=== PATIENT | female | born 1955 | race Caucasian/White ===

== ENCOUNTER 2016-05-08 08:39 | Observation (INO) | payer OTHER ==
[2016-05-05 15:59] VITALS: BMI 15.3
[~2016-05-08] VITALS: Ht 167.6 cm; Wt 42.5 kg
[2016-05-08] VITALS (30 sets, daily range): BP systolic 74–109; BP diastolic 42–58; PULSE 58–89; RESP 12–22; Ht 167.6 cm; Wt 42.5 kg
[~2016-05-08 08:39] MED LIST: HETASTARCH 6% NACL 500 ML BAG ONE
--- NOTE | 2016-05-08 11:39 | RADRPT ---
PROCEDURE: XR Chest AP portable CLINICAL INDICATION: Preop TECHNIQUE: An AP portable radiograph of the chest was submitted. COMPARISON: None. FINDINGS: Support Hardware: A right-sided Port-A-Cath is evident with the tip projecting to the superior vena cava. Cardiovascular: The cardiovascular silhouette appears unremarkable. Lung Ray: The lung ray are hyperexpanded. There is minimal pleural parenchymal scarring at th e apices. Pleural Spaces: No pneumothorax or pleural effusion is identified. Osseous Structures: The osseous structures appear intact. Soft Tissues: The soft tissues appear unremarkable. IMPRESSION: 1. Right-sided Port-A-Cath in place 2. Pulmonary hyperexpansion with minimal pleural parenchymal scarring at the pulmonary apices. Physician Jocelyn Date Time Electronically viewed and signed by Physician Jocelyn on 05/08/2016 11:39 /
[2016-05-08 11:43] LABS: POTASSIUM 5.4 mmol/L (3.5-5.1)
[2016-05-08 11:54] LABS: CALCIUM 9.5 mg/dl (8.4-10.2); CREATININE 0.72 mg/dl (0.44-1.00)
[2016-05-08 11:56] LABS: INR 0.96; PROTIME 12.8 Sec (12.2-14.2)
[2016-05-08] MEDS ORDERED: HYDROCODONE/APAP (7.5/325) TAB PO PRN (12:00)
[2016-05-08 12:09] LABS: BASOPHILS % 0.5 % (0.0-2.0); EOSINOPHILS # 0.1 10^3/ul (0.0-0.5); EOSINOPHILS % 1.9 % (0.0-7.0); HEMATOCRIT 32.9 % (37.0-47.0); HEMOGLOBIN 11.2 g/dl (12.0-16.0); LYMPHOCYTES # 1.2 10^3/ul (0.8-2.9); LYMPHOCYTES % 32.6 % (15.0-51.0); MEAN CORPUSCULAR HEMOGLOBIN 35.7 pg (29.0-33.0); MEAN CORPUSCULAR HGB CONC 34.1 g/dl (32.0-37.0); MEAN CORPUSCULAR VOLUME 104.5 fl (82.0-101.0); MEAN PLATELET VOLUME 8.3 fl (7.4-10.4); MONOCYTE # 0.3 10^3/ul (0.3-0.9); MONOCYTES % 7.2 % (0.0-11.0); NEUTROPHIL # 2.1 10^3/ul (1.6-7.5); NEUTROPHILS % 57.8 % (39.0-77.0); PLATELET COUNT 157 10^3/UL (140-440); RED BLOOD COUNT 3.14 10^6/ul (4.20-5.40); RED CELL DISTRIBUTION WIDTH 14.2 % (11.5-14.5); UNCORRECTED WBC 3.7 10^3/ul (4.8-10.8); WHITE BLOOD COUNT 3.7 10^3/ul (4.8-10.8)
[2016-05-08 12:14] LABS: CONDITION 1; LH ANALYZER COMMENTS 1
[2016-05-08] MEDS ORDERED: SOD CHLORIDE 0.9% 1,000 ML IV SCH (12:30)
[2016-05-08] MEDS ORDERED: CEFAZOLIN 2 GM/50 ML (PMX) 50 ML IVPB ONE (12:30)
[2016-05-08 12:31] LABS: PARTIAL THROMBOPLASTIN TIME 24.1 Sec (25.0-35.0)
[2016-05-08] MEDS ORDERED: FENTAnyl 50 MCG/ML VIAL ONE (12:33)
[2016-05-08] MEDS ORDERED: MIDAZOLAM 1 MG/ML 2 ML INJ ONE (12:33)
[2016-05-08] MEDS ORDERED: PROPOFOL 20 ML ONE (12:40)
[2016-05-08] MEDS ORDERED: PHENYLephrine (100 MCG/ML) 5ML SYG ONE ×3 (12:40→13:21)
[2016-05-08] MEDS ORDERED: METOCLOPRAMIDE 10 MG INJ ONE (13:21)
[2016-05-08] MEDS ORDERED: ONDANSETRON 4 MG INJ ONE (13:21)
[2016-05-08] MEDS ORDERED: DEXAMETHASONE 4 MG/ML 1 ML INJ ONE (13:21)
[2016-05-08] MEDS ORDERED: KETOROLAC 30 MG INJ ONE (13:21)
[2016-05-08] MEDS ORDERED: EPHEDrine SULFATE 50 MG/5 ML SYG IV PRN (13:30)
[2016-05-08] MEDS ORDERED: ONDANSETRON 4 MG INJ IV PRN (13:30)
[2016-05-08] MEDS ORDERED: DIPHENHYDRAMINE 50 MG INJ IV PRN (13:30)
[2016-05-08] MEDS ORDERED: FENTAnyl 50 MCG/ML VIAL IV PRN ×2 (13:30)
[2016-05-08] MEDS ORDERED: morphine (1 MG/ML) 10ML SYRINGE IV PRN ×2 (13:30)
[2016-05-08] MEDS ORDERED: ALBUMIN HUMAN 5% 250 ML IV PRN (13:30)
[2016-05-08] MEDS ORDERED: HYDROmorphONE (0.2 MG/ML) 10ML SYG IV PRN ×2 (13:30)
[2016-05-08] MEDS ORDERED: CEFAZOLIN 1 GM INJ ONE (13:41)
--- NOTE | 2016-05-08 14:14 | OPR ---
DATE OF OPERATION: 05/08/2016 PREOPERATIVE DIAGNOSIS: Locally advanced left breast cancer. POSTOPERATIVE DIAGNOSIS: Locally advanced left breast cancer. OPERATION PERFORMED: Needle-directed left partial mastectomy and axillary dissection. ANESTHESIA: General. ANESTHESIOLOGIST: Dr. Velasco. SURGEON: Ronny Merritt MD SPINNING LATHE OPERATOR AUTOMATIC: Rodolfo Vela MD INDICATIONS FOR PROCEDURE: The patient is a 60-year-old female who presented with a large, approxim ately 4 cm left breast cancer. She was found to be to HER2 positive. She underwent neoadjuvant dwight motherapy with good response. A post-treatment mammogram revealed that the tumor had shrunken signi ficantly and she was deemed a candidate for needle-directed partial mastectomy and axillary dissecti on. She consented and was scheduled for surgery. DESCRIPTION OF PROCEDURE: On the morning of surgery, the patient presented to [facility] where she underwent localization of the lesion performed by attending radiol ogist, Dr. Ana Song. Subsequently, she was brought to the operating theater, placed under ge neral anesthesia. The left breast and axillary region were prepped and draped in usual sterile fash ion. Attention was directed to the region of the localization wire which was in the upper outer eunice drant. A curvilinear incision was made in this region. Subcutaneous tissue was dissected with caut juno. Skin edges were then elevated with skin hooks. Wide circumferential dissection of the tissue associated with the wire took place, taking care to ensure adequate margin. Specimen was elevated, transected, oriented, and sent for radiographic confirmation of capture. Capture was confirmed. Th e specimen was sent for permanent pathologic analysis. The wound was irrigated. Upon inspection, Sowmya Merritt, found additional firm tissue inferiorly. This tissue was also resected, oriented and sent separately for pathologic analysis. The wound was then irrigated. Minimal bleeding was controlled with cautery. The skin was reapproximated with 4-0 Vicryl suture in subcuticular fashion. Attention was then directed towards the axilla. A 4 cm incision was made in the axillary hairline. Subcutaneous tissue was dissected with cautery down through the clavipectoral fascia. With blunt d issection along the chest wall, the long thoracic nerve was identified and kept out of harm's way. More superiorly, the axillary vein and thoracodorsal neurovascular bundle were identified and kept o ut of harm's way. Node bearing tissue between the long thoracic nerve and thoracodorsal nerve was t hen meticulously resected using the LigaSure device. Specimen was sent for permanent pathologic danni lysis. The wound was irrigated. Minimal bleeding was controlled with cautery. A #7 Chinese Rc -Maya drain was then brought through the left mid axillary line, cut to size and laid within the ax illa. It was secured in place with 2-0 nylon suture in standard fashion. The skin was then reappro ximated with a 4-0 Vicryl suture in subcuticular fashion. Dermabond was applied to both wounds The patient tolerated the procedure well. Estimated blood loss was 30 mL. There were no complications and the patient was transported in stable condition to the recovery room. Dictated By: RONNY MULLEN/NASIR Conf#: [id number] DID#: [id number]
[2016-05-08] MEDS ORDERED: NALOXONE (0.4 MG/ML) INJ IV ONE (17:30)
[2016-05-08] MEDS ORDERED: LACTATED RINGER'S 1,000 ML IV SCH (18:00)
[2016-05-08] MEDS ORDERED: IBUPROFEN 400 MG TAB PO SCH (18:00)
--- NOTE | 2016-05-10 09:24 | RADRPT ---
Vent Rate: 67 bpm RR Interval: 0 msec WA Interval: 152 msec QRS Duration: 80 msec QT Interval: 432 msec QTC Interval: 456 msec P-R-T [place]: 75 - 19 - 79 degrees Normal sinus rhythm Normal ECG Electronically Signed By: Xavi Burton [id number]
== END 2016-05-08 19:38 | disposition home or self-care (01) ==
LOC: SDS 08:39 → EDSTATUS 14:50 → MS1 17:59 → SDS 17:59
PROVIDERS: ADMIT Surgery Surgical Oncology; ATTEND Surgery Surgical Oncology
DX: D05.12 Intraductal carcinoma in situ of left breast (principal)
CPT/HCPCS: 19301; 38500; 71010; 80048; 85025; 85610; 85730; 88307; 93005; J0690; J1100; J1885; J2250; J2310; J2370; J2405; J2765; J3010; Z7500; Z7512; Z7610; G0378

== ENCOUNTER 2016-06-09 08:54 | Day surgery (SDC) | payer OTHER ==
[2016-06-09] VITALS (12 sets, daily range): BP systolic 93–116; BP diastolic 50–72; PULSE 68–86; RESP 18–27; Ht 165.1 cm; Wt 42.0 kg
[~2016-06-09] VITALS: Ht 165.1 cm; Wt 42.0 kg
[2016-06-09] MEDS ORDERED: CEFAZOLIN 1 GM/50 ML (PMX) 50 ML IVPB ONE (09:00)
[2016-06-09] MEDS ORDERED: SOD CHLORIDE 0.9% 1,000 ML IV SCH (09:00)
--- NOTE | 2016-06-09 10:02 | RADRPT ---
PROCEDURE: XR Chest. CLINICAL INDICATION: Preoperative chest TECHNIQUE: Chest AP portable. COMPARISON: 05/08/2016 FINDINGS: Right internal jugular Port-A-Cath. The mediastinal structures are unremarkable. There is calcification of the thoracic aorta (consiste nt with atherosclerosis). The heart is normal in size and configuration. The pulmonary vascularity i s normal. There is marked hyperinflation. No consolidation is identified. The pleural spaces are un remarkable. There are senescent changes of the axial skeleton. There are kaushal shadows projecting o sakina the lower lung ray IMPRESSION: Calcification of the thoracic aorta (consistent with atherosclerosis) Marked hyperinflation No active intrathoracic disease RPTAT: HGDB .Mt Shah MD, Date Time Electronically viewed and signed by .Mt Shah MD, on 06/09/2016 10:02 .B/
[2016-06-09] MEDS ORDERED: BUTA1CAP39 PO (10:39)
[2016-06-09] MEDS ORDERED: WELLBUTRIN (10:39)
[2016-06-09] MEDS ORDERED: HYDR-902 PO (10:39)
[2016-06-09] MEDS ORDERED: FENTAnyl 50 MCG/ML VIAL ONE (10:49)
[2016-06-09] MEDS ORDERED: MEPERIDINE 25 MG INJ IV PRN (11:30)
[2016-06-09] MEDS ORDERED: FENTAnyl 50 MCG/ML VIAL IV PRN (11:30)
[2016-06-09] MEDS ORDERED: OXYCODONE/ACETAMINOPHEN (5/325) TAB PO PRN (11:30)
[2016-06-09] MEDS ORDERED: morphine (1 MG/ML) 10ML SYRINGE IV PRN ×3 (11:30)
[2016-06-09] MEDS ORDERED: HYDROCODONE/APAP (7.5/325) TAB PO PRN (12:00)
--- NOTE | 2016-06-09 12:12 | OPR ---
DATE OF OPERATION: 06/09/2016 PREOPERATIVE DIAGNOSIS: Left breast cancer, need for reexcision partial mastectomy. POSTOPERATIVE DIAGNOSIS: Left breast cancer, need for reexcision partial mastectomy. OPERATION PERFORMED: Left reexcision partial mastectomy. ANESTHESIA: General. ANESTHESIOLOGIST: Dr. Doll SURGEON: Ronny Merritt MD ASSISTANTS: Dr. Vela and Dr. Matthews. INDICATIONS FOR PROCEDURE: The patient is a 60-year-old female, recently treated for breast cancer. She had inadequate margins and required reexcision. She consented and was scheduled for surgery. DESCRIPTION OF PROCEDURE: The patient was brought to the operating theater and placed under general anesthesia. The left breast was prepped and draped in the usual sterile fashion. A planned ellipt ical incision around the previous surgical incisional scar was made with a 15 blade scalpel. The birch bcutaneous tissue was dissected with cautery. The skin edges were elevated with skin hooks. Wide c ircumferential dissection of the entire previous biopsy cavity took place. Specimen was transected, oriented, and sent for permanent pathologic analysis. The wound was irrigated. Minimal bleeding w as controlled with cautery. Dr. Merritt made the decision to lay a small quarter-inch [place] drain i nto the wound cavity based on the size of the cavity and secured it in place with 2-0 nylon suture i n a standard fashion. The skin was then reapproximated with 4-0 Vicryl sutures in deep dermal interr upted fashion, followed by final skin approximation with 5-0 PDS sutures in subcuticular fashion. B enzoin and Steri-Strips were then applied. The patient tolerated the procedure well. Estimated blo od loss was 20 mL. COMPLICATIONS: None. DISPOSITION: The patient was transported in stable condition to the recovery room. Dictated By: RONNY MULLEN/NASIR Conf#: [id number] DID#: [id number]
[2016-06-09] MEDS ORDERED: CEFAZOLIN 1 GM INJ ONE (12:54)
[2016-06-09] MEDS ORDERED: ROCURONIUM 50 MG INJ ONE (12:54)
[2016-06-09] MEDS ORDERED: NEOSTIGMINE 3 MG/3 ML SYRINGE ONE (12:54)
[2016-06-09] MEDS ORDERED: PROPOFOL 40 ML ONE (12:54)
[2016-06-09] MEDS ORDERED: LIDOCAINE 2% (SDV) 5 ML INJ ONE (12:54)
[2016-06-09] MEDS ORDERED: GLYCOPYRROLATE 0.4 MG INJ ONE (12:54)
[2016-06-09] MEDS ORDERED: SUCCINYLCHOLINE CHLORIDE 100 MG/5 ML SYG IV ONE (12:54)
--- NOTE | 2016-06-09 13:45 | RADRPT ---
Vent Rate: 76 bpm RR Interval: 0 msec DC Interval: 148 msec QRS Duration: 92 msec QT Interval: 412 msec QTC Interval: 463 msec P-R-T [place]: 77 - 35 - 72 degrees Normal sinus rhythm Septal infarct , age undetermined Abnormal ECG Electronically Signed By: Juan Palmer [id number]
[2016-06-09] MEDS ORDERED: OXYCODONE/ACETAMINOPHEN (5/325) TAB PO ONE (14:30)
== END 2016-06-09 15:10 | disposition home or self-care (01) ==
LOC: SDS 08:54
PROVIDERS: ATTEND Surgery Surgical Oncology
DX: N60.32 Fibrosclerosis of left breast (principal); N64.1 Fat necrosis of breast; Z85.3 Personal history of malignant neoplasm of breast
CPT/HCPCS: 19301; 71010; 88307; 93005; J0330; J0690; J2710; J3010; Z7512; Z7610

== ENCOUNTER 2018-06-14 06:47 | Day surgery (SDC) | payer OTHER ==
[~2018-06-14] VITALS: Ht 167.6 cm; Wt 45.5 kg
[2018-06-14] VITALS (12 sets, daily range): BP systolic 91–142; BP diastolic 54–78; PULSE 69–97; RESP 13–36; Ht 167.6 cm; Wt 45.5 kg
[~2018-06-14 06:47] MED LIST changes: +BUTA1CAP39 PO; -HETASTARCH 6% NACL 500 ML BAG ONE; +HYDR-3980 PO; +WELLBUTRIN
[2018-06-14] MEDS ORDERED: NEOSTIGMINE 10 MG INJ ONE (07:00)
[2018-06-14] MEDS ORDERED: GLYCOPYRROLATE 0.4 MG INJ ONE (07:00)
[2018-06-14] MEDS ORDERED: DULO20CA43 PO (07:21)
[2018-06-14] MEDS ORDERED: FLUO20CA38 PO (07:21)
[2018-06-14] MEDS ORDERED: HEPARIN 1000 UNITS/ML 10 ML INJ ONE (07:43)
[2018-06-14] MEDS ORDERED: LIDOCAINE 1% (MPF) 30 ML INJ ONE (07:43)
[2018-06-14] MEDS ORDERED: CEFAZOLIN 2 GM/50 ML (PMX) 50 ML IVPB ONE (08:00)
[2018-06-14] MEDS ORDERED: SOD CHLORIDE 0.9% 1,000 ML IV ONE (08:00)
--- NOTE | 2018-06-14 08:02 | PREAC ---
Date/Time of Note Date/Time of Note DATE: 06/14/18 TIME: 08:00 Anesthesia Eval and Record Evaluation Time Pre-Procedure Interview DATE: 06/14/18 TIME: 08:00 Age 62 Sex female NPO: 8 hrs Preoperative diagnosis breast ca Planned procedure removal port a cath Past Medical History Past Medical History: Includes (breast ca) Psych: Depression Surgery & Anesthesia Issues No known issue Meds Anticoagulation: No Beta Jarrod within 24 hr: No Reason Beta Jarrod not given: Pt. not on B-Jarrod Reported Medications Duloxetine Hcl* (Cymbalta*) 20 Mg Capsule.dr, 20 MG PO BID, CAP 06/14/18 Fluoxetine Hcl* (Prozac*) 20 Mg Capsule, 20 MG PO DAILY, CAP 06/14/18 Discontinued Reported Medications Hydrocodone/Acetaminophen (Estero 10-325 Tablet) 1 Each Tablet, EACH PO, TAB 06/09/16 Hjhoielgjfwiz-Aufnnfquno-Tcahyhxl-Codeine* (Fioricet w/ Codeine*) [id number] Capsule, 1 CAP PO Q6H PRN for PAIN LEVEL 1-5, CAP 06/09/16 [Wellbutrin] No Conflict Check 06/09/16 Current Medications Cefazolin Sodium/ Dextrose 50 ml @ 100 mls/hr PRE-OP ONCE IVPB ; Start 06/14/18 at 08:00; Stop 06/14/18 at 08:29 Sodium Chloride 1,000 ml @ 75 mls/hr [id number] ONCE IV ; Start 06/14/18 at 08:00; Stop 06/14/18 at 21:19 Meds reviewed: Yes Allergies Coded Allergies: No Known Drug Allergies (Unverified Allergy, Unknown, 06/14/18) shrimp (Verified Allergy, Unknown, RESPIRATORY CONGESTION, REDNESS, 06/09/16) Allergies Reviewed: Yes Labs/Studies Labs Reviewed: Reviewed by anesthesiologist Result Diagram: 06/14/18 0706 06/14/18 0706 Laboratory Tests 06/14/18 07:06 test: N/A Studies: ECG Pre-procedure Exam Last vitals Vital Signs Date Temp Pulse Resp B/P (MAP) Pulse Ox O2 O2 Flow FiO2 Time Delivery Rate 06/14/18 96.6 69 18 111/56 97 Room Air 07:21 (74) Airway: Adequate mouth opening, Adequate thyromental dist Mallampati: Mallampati I Teeth: Normal Lung: Normal Heart: Normal ASA Physical Status ASA physical status: 2 Emergency: None Planned Anesthetic General/MAC: MAC Planned Pain Management Parenteral pain med Pre-operative Attestations Prior to commencing anesthesia and surgery, the patient was re-evaluated, there was verification of: *The patient's identity *The results of appropriate recent lab work and preoperative vital signs *The above evaluation not changing prior to induction *Anesthetic plan, risk benefits, alternative and complications discussed with patient/family; questions answered; patient/family understands, accepts and wishes to proceed. KATHY MEDRANO CRNA Jun 14, 2018 08:02
[2018-06-14] MEDS ORDERED: FENTAnyl 50 MCG/ML VIAL ONE (08:06)
[2018-06-14] MEDS ORDERED: LIDOCAINE 1% (MDV) 20 ML INJ ONE (08:06)
[2018-06-14] MEDS ORDERED: PROPOFOL 20 ML ONE (08:06)
[2018-06-14] MEDS ORDERED: EPHEDrine 50 MG INJ ONE (08:22)
[2018-06-14] MEDS ORDERED: ONDANSETRON 4 MG INJ ONE (08:25)
[2018-06-14] MEDS ORDERED: DEXAMETHASONE 4 MG/ML 5 ML INJ ONE (08:25)
[2018-06-14] MEDS ORDERED: PHENYLephrine (100 MCG/ML) 5ML SYG ONE (08:34)
--- NOTE | 2018-06-14 08:57 | SIPON ---
Date/Time of Note Date/Time of Note DATE: 06/14/18 TIME: 08:56 Operative Report Preoperative Diagnosis History of breast cancer need for chemo port removal Postoperative Diagnosis Same Operation/Procedure Performed Removal of chemo port right subclavian location Surgeon see signature line assistant federal public defender Ramila Byers Anesthesia: general Estimated blood loss: 0 - 10 ml's Transfusion Required none Specimen Chemo-Port gross only Grafts/Implants none Complications none KATHRYN AVINA MD Jun 14, 2018 08:57
--- NOTE | 2018-06-14 09:10 | PAC ---
Date/Time of Note Date/Time of Note DATE: 06/14/18 TIME: 09:09 Post-Anesthesia Notes Post-Anesthesia Note Last documented vital signs Vital Signs Date Temp Pulse Resp B/P (MAP) Pulse Ox O2 O2 Flow FiO2 Time Delivery Rate 06/14/18 96.6 69 18 111/56 97 Room Air 07:21 (74) Activity: WNL Respiratory function: WNL Cardiovascular function: WNL Mental status: Baseline Pain reasonably controlled: Yes Hydration appropriate: Yes Nausea/Vomiting absent: Yes Comments bp 142/78 spo2 100%, HR 97, RR12, temp 98.2F KATHY MEDRANO PHOTO FINISHER Jun 14, 2018 09:10
[2018-06-14] MEDS ORDERED: FENTAnyl 50 MCG/ML VIAL IV PRN (09:30)
[2018-06-14] MEDS ORDERED: OXYCODONE/ACETAMINOPHEN (5/325) TAB PO PRN (09:30)
[2018-06-14] MEDS ORDERED: ONDANSETRON 4 MG INJ IV PRN (09:30)
[2018-06-14] MEDS ORDERED: HYDROmorphONE 1 MG/5 ML IV SYRINGE IV PRN (09:30)
--- NOTE | 2018-06-14 09:49 | OPR ---
DATE OF OPERATION: 06/14/2018 PREOPERATIVE DIAGNOSIS: History of left breast cancer, need for chemo port removal from right subcla vian location. POSTOPERATIVE DIAGNOSIS: History of left breast cancer, need for chemo port removal from right subcl [place]agu[place]a location. OPERATION PERFORMED: Removal of chemo port right subclavian location. ANESTHESIA: General. ANESTHESIOLOGIST: Dr. Palafox. GM MOBILE: Registered nurse, ZAK Worley INDICATIONS FOR PROCEDURE: The patient is a 62-year-old female who I previously treated for invasive cancer of her left breast. She successfully completed her treatment and requested removal of her ch emo port. She consented and was scheduled for surgery. DESCRIPTION OF PROCEDURE: The patient was brought to the operating theater, placed under general ane sthesia. She was then put in the Trendelenburg location and the right anterior thoracic region was p repped and draped in usual sterile fashion. The previous surgical incisional scar directly over the port was reincised with #15 blade scalpel. Subcutaneous tissue was dissected with cautery. The surr ounding adhesions were meticulously dissected and the port was then gently withdrawn as pressure was held in an infraclavicular location. The port appeared grossly intact. It was sent for permanent pa thologic analysis to confirm that it was intact. The wound was irrigated. Minimal bleeding was cont rolled with cautery. The area was then infiltrated with 0.5% Marcaine local anesthetic with epinephr ine, and the skin incision was then closed with 5-0 PDS suture in subcuticular fashion. Benzoin and Steri-Strips were then applied. The patient tolerated procedure well. Estimated blood loss was 5 mL . There were no complications and the patient was transported in stable condition to the recovery ro . Dictated By: KATHRYN AVINA MD TL/NASIR Conf#: [id number] DID#: [id number]
== END 2018-06-14 10:45 | disposition home or self-care (01) ==
LOC: SDS 06:47
PROVIDERS: ATTEND Surgery Surgical Oncology
DX: Z45.2 Encounter for adjustment and management of vascular access device (principal); Z85.3 Personal history of malignant neoplasm of breast
CPT/HCPCS: 36590; 71045; 80053; 85025; 85610; 85730; 88300; J1100; J2370; J2405; J2710; J3010; Z7512; Z7610; J1644